=== PATIENT | male | born 1960 | race Caucasian/White ===

== ENCOUNTER 2022-10-17 09:40 | Outpatient (AMB) | payer MEDICARE, MEDICAID, SELFPAY ==
--- NOTE | 2022-10-17 10:14 | A.SPINEOV_ITS ---
Intake Intake Visit Reasons: numbness on the left side of neck Intake Note: Mr. Mcgovern is here today c/o left side neck numbness. MRI done @ [place]/brought disc. Campus Administrative Assistant Required: No Assessment & Plan Assessment & Plan (1) Neck pain, musculoskeletal: Code(s): M54.2 - Cervicalgia Plan Dear colleague, On 10/17/2022, I saw your patient John Avery for a left-sided neck pain. History of present illness: This 62-year-old male is complaining over a progressive coma intermittent left sided neck pain for a few months. The pain comes when he rotates towards the right side or flexes his neck. The pain is located around his ear and a left side of his neck. It does not radiate into her arm. The pain is associated with tingling. The right side is unaffected. He has tried massage but no other therapies. Medical history: Hypertension and thyroid disease Surgical history: Lumbar fusion Medications: Percocet on levothyroxine Allergies: Motrin Social history: Denies smoking. Physical exam: Pleasant male. No pain on palpation of cervical spine. Rotation towards the right side of flexion can produce the symptoms. No deficits from motor sensation or reflexes. No pathological reflexes. Gait is on the steroid. An MRI of the cervical spine at [place] show severe left C3 and C4 foraminal stenosis. In summary, this patient is suffering from left-sided neck pain and numbness. I am not sure if this is associated with the left C3 and C4 foraminal stenosis. The symptoms are positional in nature and therefore suspect it is more facet joint related. I would like to refer him for physical therapy. He will call my office if he wants to be referred for an injection. We will refer him to the [facility]. I spent 45 minutes in this consult for preparation, review of imaging and discussing plan of care. Thank you for letting me take care of your patient. Petar Rm MD, PhD Spine Fellowship Trained Neurosurgeon Director, [facility] Orders: Orders PT Evaluation and Treatment Today M54.2 - Cervicalgia Coding Level of Care Code New Pt Level 4 (99586) Diagnoses Neck pain, musculoskeletal M54.2
== END 2022-10-17 11:31 | disposition home or self-care (01) ==
PROVIDERS: Visit Provider Neurological Surgery
DX: M54.2 Cervicalgia (principal)
CPT/HCPCS: 99204; 99214

== ENCOUNTER → 2022-10-17 09:40 | Outpatient (BNVA) | payer MEDICARE, MEDICAID, SELFPAY | PROVIDERS: Visit Provider Neurological Surgery | DX: M54.2 Cervicalgia (principal); M48.02 Spinal stenosis, cervical region | CPT/HCPCS: 99202 ==

== ENCOUNTER 2023-02-18 10:40 | Outpatient (AMB) | payer MEDICARE, MEDICAID, SELFPAY ==
--- NOTE | 2023-02-18 10:40 | MHC.OFFVIS ---
Intake Intake Visit Reasons: needs pain scale for facet inj HPI needs pain scale for facet inj HPI Details 62-year-old male who presents today to the tele-visit for an assessment for facet injection. The patient was referred by Dr. Rm. He recently started physical therapy, which was somewhat helpful in relieving shoulder pain. He continues to experience pain up and down his axial neck, including behind the ear, but his other pain has improved. He currently reports neck pain that radiates up to his ear. His left side is worse than his right side. He also reports otalgia. He denies any radiating pain down to the arm. He denies having difficulty looking up but has difficulty looking down. He is using pain medication with minimal benefit. He is able to lift a gallon of milk can without any pain. He denies any pain from standing or walking. He noticed pain after sitting down for more than 20 minutes. He sleeps on his sides and occasionally wakes up in the middle of the night due to pain. He is able to travel. 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 His recent MRI scan was completed at [facility]. LAURENCE: 60% disability indicating severe disability. Medical history: Hypertension and thyroid disease Surgical history: Lumbar fusion Medications: Percocet, levothyroxine Allergies: Motrin Social history: Denies smoking. An MRI of the cervical spine at [place] show severe left C3 and C4 foraminal stenosis. Review of Systems Const All systems reviewed & are unremarkable except as noted in HPI and below Results Reviewed Results Reviewed: MRI of cervical spine without contrast TECHNIQUE: Multiplanar and multisequence MR imaging of cervical spine spine performed without intravenous contrast administration. Sequences obtained include, Sagittal plane: T1, T2 and STIR Axial plane: T2 and gradient CLINICAL INFORMATION: M54.2 - I10 - Cervicalgia. COMPARISON: Cervical spine radiographs from 06/13/2022 FINDINGS: There is straightening of the cervical lordosis. The alignment of the cervical spine is maintained. Vertebral body heights are preserved. No suspicious osseous lesions. There is diffuse disc desiccation with disc height loss from C3 to C7. No evidence of spinal cord compression. The spinal cord signal is maintained. The prevertebral and paraspinal soft tissues are maintained. At C2-C3, there is a mild diffuse disc bulge without spinal canal stenosis. Advanced left facet arthropathy with fluid signal within the facet joint as well as surrounding soft tissue and marrow edema with resultant severe left neuroforaminal narrowing. At C3-C4, there is a disc osteophyte complex with mild narrowing of the spinal canal. Uncovertebral degeneration, left greater than right, and facet arthropathy results in severe left and mild to moderate right neuroforaminal narrowing. At C4-C5, there is a disc osteophyte complex with superimposed central disc protrusion with mild narrowing of the spinal canal. Uncovertebral degeneration and facet arthropathy results in moderate to severe left and moderate right neuroforaminal stenosis. At C5-C6, there is a disc osteophyte complex with mild spinal canal narrowing. Mild to moderate bilateral neuroforaminal stenosis. At C6-C7, there is a disc osteophyte complex with mild spinal canal narrowing. Moderate bilateral neuroforaminal stenosis. At C7-T1, there is no significant spinal canal stenosis. Moderate left facet degeneration with mild left neuroforaminal stenosis. IMPRESSION: 1. Diffuse degenerative changes of the cervical spine most significant for mild spinal canal stenosis from C3 to C7 and severe left neuroforaminal stenosis at C2-C3 and C3-C4. 2. No evidence of spinal cord compression. Normal cord signal. Assessment & Plan Assessment & Plan (1) Cervical spondylosis: Code(s): M47.812 - Spondylosis without myelopathy or radiculopathy, cervical region (2) Cervical radicular pain: Code(s): M54.12 - Radiculopathy, cervical region Plan Will schedule him for a left C3-C4-C5 medial branch blocks for axial neck pain extending up to the left ear. Discussed the risks and benefits of the procedure with the patient in detail. All questions were answered. The patient is on board with the plan. If this is not helpful in relieving his symptoms, we can consider a left parasagittal interlaminar JERRI. Justification for interventional therapy: ? Patient with average pain > 6/10 ? Patient has exhausted conservative therapy ? Patient has gained maximal benefit from PT Scribed for Dr. Tobias by Adams Black, medical staff coordinator, on 02/18/2023. I, Dr. Tobias, have personally reviewed and agree with the information entered by the scribe. Telehealth Telehealth Location of provider rendering services: practice address Location of patient: address on file Patient Identification confirmed using: Name, : Yes Telehealth method: voice only Patient verbally consented to treatment: Yes Patient verbally consented to billing insurance company: Yes Patient informed of any privacy concerns related to visit: Yes Minutes spent on Phone/Video with Pt.: 14 Coding Level of Care Code Tele New Pt Level 4 (95738) Diagnoses Cervical spondylosis M47.812 Cervical radicular pain M54.12
== END 2023-02-18 10:40 | disposition home or self-care (01) ==
LOC: HO.PMC 10:40
PROVIDERS: Visit Provider Internal Medicine
DX: M47.812 Spondylosis without myelopathy or radiculopathy, cervical region (principal); M54.12 Radiculopathy, cervical region
CPT/HCPCS: 99442

== ENCOUNTER → 2023-02-18 10:40 | Outpatient (BNVA) | payer MEDICARE, MEDICAID, SELFPAY | PROVIDERS: Visit Provider Internal Medicine ==

== ENCOUNTER 2023-04-04 06:10 | Outpatient (REF) | payer MEDICARE, MEDICAID, SELFPAY ==
--- NOTE | ~2023-04-04 | FL_ITS ---
EXAMINATION: Intraoperative fluoroscopy CLINICAL INFORMATION: Spondylosis COMPARISON: None. TECHNIQUE: Intraoperative fluoroscopy was provided for use by Dr. Tobias. A total of 2 images were saved to PACS. A radiologist was not present during imaging. Today's dictation is only for administrative purposes to document intraoperative fluoroscopic usage. TOTAL FLUOROSCOPIC TIME: 0.1 minutes DAP: 0.39529 mGy-cm FL/FL guidance in treatment room FINDINGS~\^^ Intraoperative fluoroscopy provided for use by Dr. Tobias. Please see operative note for detailed findings.
== END 2023-04-04 06:11 | disposition home or self-care (01) ==
LOC: CF 06:10
PROVIDERS: Visit Provider Internal Medicine
DX: M47.812 Spondylosis without myelopathy or radiculopathy, cervical region (principal)
CPT/HCPCS: 64490; 64491; J2795; Q9967

== ENCOUNTER 2023-04-04 09:31 | Outpatient (AMB) | payer MEDICARE, MEDICAID, SELFPAY ==
--- NOTE | 2023-04-04 09:45 | MHC.OFFVIS ---
Intake Vital Signs 04/04/23 09:47 04/04/23 10:54 Height 6 ft 6 ft Weight 200 lb 200 lb BMI 27.1 27.1 BP 132/78 120/68 Blood Pressure Location Lt brachial Rt brachial Position Sitting Sitting Respiration 16 16 Pulse 79 64 Pulse Source Pulse Oximeter Pulse Oximeter Pulse Oximetry (%) 97 97 Oxygen Delivery Method Room Air Room Air Comment Pre-Op post-Op Intake Visit Reasons: Left Dx C3-C4-C5 MBB Environmental Protection Officer Required: No Accompanied by: Spouse Allergies ibuprofen Allergy (Unknown, Verified 04/04/23 09:46) Anaphylaxis HPI Left Dx C3-C4-C5 MBB HPI Details Patient presents for scheduled procedure. Denies any recent cough, cold, infection, fever or other significant changes in medical history since last office visit. Physical Exam Vital Signs: Last Vital Signs Pulse 79 04/04/23 09:47 Resp 16 04/04/23 09:47 BP 132/78 04/04/23 09:47 Pulse Ox 97 04/04/23 09:47 Oxygen Delivery Method Room Air 04/04/23 09:47 BMI result Body Mass Index 27.1 Office Procedures Cervical/Thoracic Facet Inj Details: Diagnostic Cervical Medial Branch Block, Left C3, C4, C5 medial branches After obtaining written consent, pre-procedure blood pressure and pulse were recorded and are in the nursing record for review. The patient was placed in a lateral position. The respective cervical area was prepped with chloraprep and draped in sterile fashion. The skin over the target medial branch nerves was anesthetized with 0.5% lidocaine. A 25 gauge 1.5 inch needle was inserted into the target medial branch nerve under fluoroscopic guidance. No paresthesias were elicited with needle placement and aspiration was negative for blood and CSF. Next, 0.2cc of omnipaque 180 was injected to verify positioning. Next 0.5 ml 0.5% ropivicaine was injected (0.5 cc total per level). The identical procedure was performed at the remaining levels. The skin was cleansed and a sterile bandage was applied. Following the procedure the patient's vital signs were stable. The patient tolerated the procedure well and no complications were encountered. Following the procedure the patient's vital signs were stable. The patient was discharged home in good condition with post-procedural instructions. Time Out: Immediately prior to the procedure, the following was verbally confirmed that there is a signed consent form and that the correct patient, planned procedure, site and side are consistent with documentation and that necessary equipment and/or blood products are available prior to the start of the case. Complications: none EBL: <5 cc 87439 - second level, with Fluoroscopy Procedure code (CPT) selection complete Assessment & Plan Assessment & Plan (1) Cervical spondylosis: Code(s): M47.812 - Spondylosis without myelopathy or radiculopathy, cervical region Plan Patient is status post left C3, C4, C5 diagnostic MBBs. Patient tolerated procedure well and was discharged home in stable condition with discharge instructions. All questions were answered. We will follow-up via telephone or in clinic to assess response to therapy. A follow-up appointment was made during today's visit. Orders: Orders FL guidance in treatment room Today M47.812 - Spondylosis without myelopathy or radiculopathy, cervical region Coding Level of Care Code Procedure Only Diagnoses Cervical spondylosis M47.812 CPT Codes Facet Injection Cervical/Thoracic - CPT: 37446 - second level, with Fluoroscopy ([id number])
[2023-04-04 09:47] VITALS: BP 132/78; PULSE 79; RESP 16; O2SAT 97; BMI 27.1
[2023-04-04 10:54] VITALS: BP 120/68; PULSE 64; RESP 16; O2SAT 97; BMI 27.1
== END 2023-04-04 10:44 | disposition home or self-care (01) ==
LOC: HO.PMCPRC 09:31
PROVIDERS: Visit Provider Internal Medicine
DX: M47.812 Spondylosis without myelopathy or radiculopathy, cervical region (principal)
CPT/HCPCS: 64490; 64491

== ENCOUNTER 2023-04-08 11:03 | Outpatient (AMB) | payer MEDICARE, MEDICAID, SELFPAY ==
[2023-04-08 11:07] VITALS: BP 140/80; PULSE 75; RESP 12; O2SAT 98; BMI 27.1
--- NOTE | 2023-04-08 11:07 | MHC.OFFVIS ---
Intake Vital Signs 04/08/23 11:07 Height 6 ft Weight 200 lb BMI 27.1 BP 140/80 H Blood Pressure Location Rt brachial Position Sitting Respiration 12 Pulse 75 Pulse Source Pulse Oximeter Pulse Oximetry (%) 98 Oxygen Delivery Method Room Air Intake Visit Reasons: s/p Left Dx C3-C4-C5 MBB/confirmed Allergies ibuprofen Allergy (Unknown, Verified 04/08/23 11:09) Anaphylaxis Medication List - Last Reconciled 04/08/23 by Patria Bailon LPN amlodipine 5 mg PO DAILY ciclopirox 8% topical diazepam 10 mg PO DAILY PRN gabapentin 300 mg PO DAILY levothyroxine 137 mcg PO DAILY omeprazole 20 mg PO DAILY oxycodone-acetaminophen 7.5-325 mg 1 tab PO QID PRN rosuvastatin 5 mg PO DAILY HPI s/p Left Dx C3-C4-C5 MBB/confirmed HPI Details 62-year-old male who presents today to the office for a status post left diagnostic C3-C4-C5 MBB. The patient reports 100% relief following the procedure. He reports pain up and down his axial neck bilaterally has now returned. His left side is worse than his right side. He denies any radiating pain down to the arm. He has mild difficulty looking down. He recently completed physical therapy for his neck. He also reports having sharp pain from his back that radiates to the sides of the abdomen, which started after the lumbar fusion surgery in the past. Past procedures: 04/04/23: Diagnostic Cervical Medial Branch Block, Left C3, C4, C5 medial branches: 100% relief for 2 days. Review of Systems Const All systems reviewed & are unremarkable except as noted in HPI and below Physical Exam Vital Signs: Last Vital Signs Pulse 75 04/08/23 11:07 Resp 12 04/08/23 11:07 BP 140/80 H 04/08/23 11:07 Pulse Ox 98 04/08/23 11:07 Oxygen Delivery Method Room Air 04/08/23 11:07 BMI result Body Mass Index 27.1 General: Appears afebrile. Alert and oriented. Mood and affect appropriate. Follows and participates in conversation appropriately. Respiratory effort is unlabored. Able to transition from sit to stand unassisted. Ambulates with bilaterally normal heel strike and toe off. Results Reviewed Results Reviewed: No imaging is available for review. Assessment & Plan Assessment & Plan (1) Cervical spondylosis: Code(s): M47.812 - Spondylosis without myelopathy or radiculopathy, cervical region Plan Discussed extensively about RFA vs. temporary nerve stimulator as a possible treatment option for his neck pain. Will schedule him for a repeat left diagnostic C3-C4-C5 MBB in anticipation of possible RFA. Discussed the risks and benefits of the procedure with the patient in detail. All questions were answered. The patient is on board with the plan. Justification for interventional therapy: ? Patient with average pain > 6/10 ? Patient has exhausted conservative therapy . Diagnostic injection provided 100% relief Scribed for Dr. Tobias by Adams Black, medical transcription editor, on 04/08/2023. I, Dr. Tobias, have personally reviewed and agree with the information entered by the scribe. Coding Level of Care Code Est Pt Level 3 (02639) Diagnoses Cervical spondylosis M47.812
== END 2023-04-08 11:47 | disposition home or self-care (01) ==
PROVIDERS: Visit Provider Internal Medicine
DX: M47.812 Spondylosis without myelopathy or radiculopathy, cervical region (principal)
CPT/HCPCS: 99213

== ENCOUNTER → 2023-04-08 11:03 | Outpatient (BNVA) | payer MEDICARE, MEDICAID, SELFPAY | PROVIDERS: Visit Provider Internal Medicine | DX: M47.812 Spondylosis without myelopathy or radiculopathy, cervical region (principal) | CPT/HCPCS: 99212 ==

== ENCOUNTER 2023-05-09 06:19 | Outpatient (REF) | payer MEDICARE, MEDICAID, SELFPAY ==
--- NOTE | ~2023-05-09 | FL_ITS ---
EXAMINATION: XR FLUOROSCOPY WITH IMAGES CLINICAL INFORMATION: Spondylosis without myelopathy or radiculopathy COMPARISON: None available. TECHNIQUE: Fluoroscopy Supervised By: Selma Silva. Fluoroscopy Time: 0.3 minutes. Cumulative Dose: 3.73 mGy. DAP: 0.0416 Gycm2. Images: 3 FINDINGS: AP and lateral views of cervical spine were obtained. The needle positioned heart to the right of C4, C5 and C6 lateral processes with contrast opacifying the soft tissues. Visualized bones are grossly unremarkable. FL/FL guidance in treatment room IMPRESSION: Fluoroscopy guidance was provided to referrer for pain management.
== END 2023-05-09 06:20 | disposition home or self-care (01) ==
LOC: CF 06:19
PROVIDERS: Visit Provider Internal Medicine
DX: M47.812 Spondylosis without myelopathy or radiculopathy, cervical region (principal)
CPT/HCPCS: 64490; 64491

== ENCOUNTER 2023-05-13 09:36 | Outpatient (AMB) | payer MEDICARE, MEDICAID, SELFPAY ==
--- NOTE | 2023-05-13 09:47 | MHC.OFFVIS ---
Intake Vital Signs 05/13/23 09:48 Height 6 ft Weight 200 lb BMI 27.1 BP 134/85 Blood Pressure Location Lt brachial Position Sitting Respiration 12 Pulse 78 Pulse Source Pulse Oximeter Pulse Oximetry (%) 96 Oxygen Delivery Method Room Air Intake Visit Reasons: s/p repeat Left Dx C3-C4-C5 MBB Allergies ibuprofen Allergy (Unknown, Verified 05/13/23 09:49) Anaphylaxis Medication List - Last Reconciled 05/13/23 by Patria Bailon, PARVIZ amlodipine 5 mg PO DAILY ciclopirox 8% topical diazepam 10 mg PO DAILY PRN gabapentin 300 mg PO DAILY levothyroxine 137 mcg PO DAILY omeprazole 20 mg PO DAILY oxycodone-acetaminophen 7.5-325 mg 1 tab PO QID PRN rosuvastatin 5 mg PO DAILY HPI s/p repeat Left Dx C3-C4-C5 MBB HPI Details 62-year-old male who presents today to the office for a status post repeat left diagnostic C3-C4-C5 MBB. The patient reports 100% relief following the procedure for two days. He is amenable to proceeding with the RFA procedure for long-term relief. He is taking diazepam for muscle spasm as needed based on his pain. He states that the medication takes about an hour to start working. He sleeps well after taking medication. Past Procedures: 05/09/23: Diagnostic Cervical Medial Branch Block, left C3, C4, C5 medial branches: 100% relief for 2 days. 04/04/23: Diagnostic Cervical Medial Branch Block, Left C3, C4, C5 medial branches: 100% relief for 2 days. Review of Systems Const All systems reviewed & are unremarkable except as noted in HPI and below Physical Exam Vital Signs: Last Vital Signs Pulse 78 05/13/23 09:48 Resp 12 05/13/23 09:48 BP 134/85 05/13/23 09:48 Pulse Ox 96 05/13/23 09:48 Oxygen Delivery Method Room Air 05/13/23 09:48 BMI result Body Mass Index 27.1 General: Appears afebrile. Alert and oriented. Mood and affect appropriate. Follows and participates in conversation appropriately. Respiratory effort is unlabored. Able to transition from sit to stand unassisted. Ambulates with bilaterally normal heel strike and toe off. Results Reviewed Results Reviewed: No imaging is available for review. Assessment & Plan Assessment & Plan (1) Cervical spondylosis: Code(s): M47.812 - Spondylosis without myelopathy or radiculopathy, cervical region Plan We will schedule him for a left C3-C4-C5 radio-frequency ablation. Discussed the risks and benefits of the procedure with the patient in detail. All questions were answered. The patient is on board with the plan. Justification for interventional therapy: ? Patient with average pain > 6/10 ? Patient has exhausted conservative therapy ? Patient unable to tolerate physical therapy due to pain . Diagnostic injections provided 100% relief for the duration of the anesthetic phase Scribed for Dr. Tobias by Adams Black, medical equipment repair technician, on 05/13/2023. I, Dr. Tobias, have personally reviewed and agree with the information entered by the scribe. Coding Level of Care Code Est Pt Level 3 (22391) Diagnoses Cervical spondylosis M47.812
[2023-05-13 09:48] VITALS: BP 134/85; PULSE 78; RESP 12; O2SAT 96; BMI 27.1
== END 2023-05-13 10:37 | disposition home or self-care (01) ==
PROVIDERS: Visit Provider Internal Medicine
DX: M47.812 Spondylosis without myelopathy or radiculopathy, cervical region (principal)
CPT/HCPCS: 99213

== ENCOUNTER → 2023-05-13 09:36 | Outpatient (BNVA) | payer MEDICARE, MEDICAID, SELFPAY | PROVIDERS: Visit Provider Internal Medicine | DX: M47.812 Spondylosis without myelopathy or radiculopathy, cervical region (principal) | CPT/HCPCS: 99212 ==

== ENCOUNTER 2023-06-27 06:14 | Outpatient (REF) | payer MEDICARE, MEDICAID, SELFPAY | END 2023-06-27 06:15 | disposition home or self-care (01) | LOC: CF 06:14 | PROVIDERS: Visit Provider Internal Medicine | DX: Z13.89 Encounter for screening for other disorder (principal) ==